=== PATIENT | female | born 1965 | race African-American/Black ===

== ENCOUNTER 2020-05-23 09:42 | Observation (INO) ==
[2020-05-23] MEDS ORDERED: ASPIRIN 325 MG TABLET PO STA (10:11)
[2020-05-23 10:17] LABS: Basophils % 0.3 % (0.0-0.8); Eosinophils % 0.6 % (0.00-10.9); Hematocrit 37.7 VOL% (35.7-47.0); Hemoglobin 12.2 GM/DL (12.0-16.0); Immature Granulocytes % 0.4 %; Immature Granulocytes Absolute 0.03 #; Lymphocytes # 2.2 10*3/uL (1.4-4.0); Lymphocytes % 32.9 % (21.3-54.2); Mean Corpuscular HGB Conc 32.4 GM/DL (32-36); Mean Corpuscular Volume 86.7 FL (87-102); Mean Platelet Volume 9.6 FL (9.6-12.0); Monocytes % 7.8 % (1.7-12.7); Platelet Count 401 T/CUMM (130-400); Red Blood Count 4.35 MC/CUMM (3.8-5.5); Red Cell Distribution Width 14.6 % (9.3-17.3); White Blood Count 6.7 T/CUMM (4-12)
[2020-05-23] MEDS ORDERED: ENOXAPARIN 30 MG/0.3 ML SYRINGE SUBCUT STA (11:01)
[2020-05-23 11:08] LABS: Bilirubin,Total 0.4 MG/DL (0.2-1.0); Calcium 9.9 MG/DL (8.5-10.1); Osmolality,Calculated 277.5 MOS/KG (273-304)
[2020-05-23] MEDS ORDERED: ENOXAPARIN 100 MG/ML SYRINGE SUBCUT ONE (11:10)
[2020-05-23] MEDS ORDERED: diphenhydrAMINE CAP 25 MG CAPSULE PO PRN (11:53)
[2020-05-23] MEDS ORDERED: SIMETHICONE CHEW 125 MG TABLET PO PRN (11:53)
[2020-05-23] MEDS ORDERED: ZALEPLON 5 MG CAPSULE PO PRN (11:53)
[2020-05-23] MEDS ORDERED: MAGNESIUM SULF RIDER 2 GM in PREMIX 1 EACH IV PRN (11:53)
[2020-05-23] MEDS ORDERED: LACTULOSE 20 GM/30 ML UDCUP PO PRN (11:53)
[2020-05-23] MEDS ORDERED: MAGNESIUM SULF RIDER 4 GM in PREMIX 1 EACH IV PRN (11:53)
[2020-05-23] MEDS ORDERED: POTASSIUM CHLORIDE 20 MEQ TABLET PO PRN (11:53)
[2020-05-23] MEDS ORDERED: CALCIUM CARBONATE CHEW 500 MG TABLET PO PRN (11:53)
[2020-05-23] MEDS ORDERED: ALUMINUM/MAGNES/SIMETH MAX STR 30 ML UDCUP PO PRN (11:53)
[2020-05-23] MEDS ORDERED: ONDANSETRON 4 MG/2 ML VIAL IV PRN (11:53)
[2020-05-23] MEDS ORDERED: MORPHINE 4 MG/1 ML VIAL IV PRN (11:53)
[2020-05-23] MEDS ORDERED: ACETAMINOPHEN 325 MG TABLET PO PRN (11:53)
[2020-05-23] MEDS ORDERED: BISACODYL 5 MG TABLET PO PRN (11:53)
[2020-05-23] MEDS ORDERED: hydrALAZINE 20 MG/1 ML VIAL IV PRN (11:53)
[2020-05-23] MEDS ORDERED: DEXTROSE 50% 25 GM/50 ML VIAL IV PRN (11:57)
[2020-05-23] MEDS ORDERED: GLUCAGON 1 MG VIAL IM PRN (11:57)
[2020-05-23 14:59] LABS: Troponin I 0.063 NG/ML (0.00-0.045)
[2020-05-23] MEDS: PANTOPRAZOLE 40 MG TABLET PO SCH (15:13)
[2020-05-23] MEDS: INSULIN LISPRO 100 UNIT/ML SUBCUT SCH ×2 (16:22→23:29)
[2020-05-23 17:09] LABS: Troponin I 0.068 NG/ML (0.00-0.045)
[2020-05-23] MEDS ORDERED: ENOXAPARIN 40 MG/0.4 ML SYRINGE SUBCUT SCH (21:00)
[2020-05-24 05:29] LABS: Basophils % 0.4 % (0.0-0.8); Eosinophils # 0.1 10*3/uL (0.0-0.87); Hemoglobin 11.9 GM/DL (12.0-16.0); Immature Granulocytes % 0.6 %; Immature Granulocytes Absolute 0.03 #; Lymphocytes % 40.3 % (21.3-54.2); Mean Corpuscular HGB Conc 32.2 GM/DL (32-36); Mean Corpuscular Volume 86.7 FL (87-102); Mean Platelet Volume 9.8 FL (9.6-12.0); Monocytes % 7.5 % (1.7-12.7); Neutrophils % 50.2 % (38.7-73.9); Platelet Count 384 T/CUMM (130-400); Red Blood Count 4.27 MC/CUMM (3.8-5.5); Red Cell Distribution Width 14.7 % (9.3-17.3); White Blood Count 4.9 T/CUMM (4-12)
[2020-05-24 06:06] LABS: Calcium 9.5 MG/DL (8.5-10.1); Osmolality,Calculated 278.5 MOS/KG (273-304); Risk Ratio 7.23; Thyroid Stimulating Hormone 3.41 uIU/ml (0.358-3.74)
[2020-05-24 06:10] LABS: Troponin I 0.078 NG/ML (0.00-0.045)
[2020-05-24 08:47] VITALS: BP 137/90
[2020-05-24] MEDS ORDERED: amLODIPine 10 MG TABLET PO SCH (09:00)
[2020-05-24] MEDS ORDERED: ESCITALOPRAM 10 MG TABLET PO SCH (09:00)
[2020-05-24] MEDS ORDERED: LOSARTAN 50 MG TABLET PO SCH (09:00)
[2020-05-24] MEDS ORDERED: ASPIRIN EC 81 MG TABLET PO SCH (09:00)
[2020-05-24] MEDS ORDERED: GLUCAGON 1 MG VIAL IM PRN (09:01)
[2020-05-24] MEDS ORDERED: DEXTROSE 50% 25 GM/50 ML VIAL IV PRN (09:01)
[2020-05-24] MEDS: PANTOPRAZOLE 40 MG TABLET PO SCH (09:15)
[2020-05-24] MEDS: INSULIN LISPRO 100 UNIT/ML SUBCUT SCH ×2 (09:21→12:23)
== END 2020-05-24 13:50 | disposition home or self-care (01) ==
LOC: N.EDINP 09:42 → N.ED 09:42 → N.TELES 12:15
PROVIDERS: ADMIT Internal Medicine Cardiovascular Disease; ATTEND Internal Medicine Cardiovascular Disease